=== PATIENT | female | born 2000 | race Caucasian/White ===

== ENCOUNTER 2019-03-23 01:52 | Outpatient (CLI) | payer BC, SELFPAY ==
[2019-03-23 11:56] LABS: BUN 12 mg/dL (7-18); CREATININE 0.71 mg/dL (0.55-1.02); Chloride 105 mmol/L (98-107); FREE T4 0.96 ng/dL (0.76-1.46); Glucose 88 mg/dL (70-100); Potassium 4.2 mmol/L (3.5-5.1); Sodium 142 mmol/L (136-145); TSH 3.81 uIU/mL (0.36-3.74)
[2019-03-23 12:21] LABS: Calculated LDL 77 mg/dL; Cholesterol 161 mg/dL (50-200); HDL Cholesterol 44 mg/dL (40-60); Triglyceride 200 mg/dL (30-150)
== END 2019-03-23 02:12 ==
PROVIDERS: PCP Nurse Practitioner Family; Visit Provider Nurse Practitioner Family
DX: E66.9 Obesity, unspecified (principal); Z00.00 Encounter for general adult medical examination without abnormal findings; Z13.220 Encounter for screening for lipoid disorders; Z13.228 Encounter for screening for other metabolic disorders
CPT/HCPCS: 36415; 80048; 80061; 83721; 84439; 84443

== ENCOUNTER 2019-06-14 07:22 | Emergency (ER) | payer BC, SELFPAY ==
[2019-06-14 07:27] VITALS: BP 156/96; PULSE 85; RESP 14; TEMP 36.8; O2SAT 98
--- NOTE | 2019-06-14 07:36 | DI.CT_ITS ---
EXAM: CT ABDOMEN PELVIS W CLINICAL HISTORY: RLQ pain, r/o appendicitis TECHNIQUE: The exam was performed according to the usual protocol utilizing 70 cc's of Omnipaque 350 . COMPARISON: No exams were available for comparison FINDINGS: The visualized lung bases are clear. The dome of the liver was not included. There is diffuse decreased attenuation of the liver suggesti ng hepatic steatosis. No suspicious hepatic mass is seen. The gallbladder is negative. No biliary ductal dilatation is present. The pancreas, spleen and adrenal glands are unremarkable. The kidneys, ureters and bladder are unremarkable. The reproductive organs are unremarkable as visualized. The abdominal aorta is of normal caliber. No significant abdominal or pelvic adenopathy, ascites or pneumoperitoneum is present. Visualized appendix is unremarkable. There is a normal air-filled appendix present. There are a few loops of small bowel which show mild bowel wall thickening. This may represent a mil d enteritis. The remainder of the bowel is unremarkable. No acute osseous abnormality is identified. IMPRESSION: 1. No evidence of acute appendicitis. 2. Mild bowel wall thickening in a few loops of small bowel. This may represent a mild enteritis.
[2019-06-14] MEDS: Normal Saline 1,000 ML 1000 ML IV (07:47)
[2019-06-14 07:51] LABS: Bilirubin Negative (Negative); Blood Negative (Negative); Clarity Cloudy (Clear); Glucose Negative (Negative); Ketones Negative (Negative); Leukocyte Esterase Moderate (Negative); Nitrite Negative (Negative); Urobilinogen 0.2 EU/dL (Up TO 0.2); pH 5.5 (5-8)
[2019-06-14] MEDS: Ondansetron 4 MG/2 ML VIAL IVP (07:55)
[2019-06-14] MEDS: Omnipaque 350 MG/ML 100 ML BTL IJ (07:55)
[2019-06-14 07:58] LABS: Abs Immature Grans 0.01 k/cumm (0.0-0.09); Absolute Basophil Count 0.04 k/cumm (0.0-0.2); Absolute Eosinophil Count 0.13 k/cumm (0.0-0.7); Absolute Lymphocyte Count 2.95 k/cumm (1.2-3.4); Absolute Monocyte Count 0.56 k/cumm (0.11-0.7); Absolute Neutrophil Count 5.11 k/cumm (1.2-6.7); Basophils % 0.5; Eosinophils % 1.5; HCT 41.1 % (36.0-46.0); HGB 14.2 g/dL (12.0-15.5); Immature Grans % 0.1; Lymphocytes % 33.5; Mean Corp. HGB Concentration 34.5 g/dL (32.0-36.0); Mean Corpuscular Hemoglobin 29.3 pg (27.0-33.0); Mean Corpuscular Volume 84.7 fL (80-95); Mean Platelet Volume 9.2 fL (8.0-11.0); Monocytes % 6.4; Platelet Count 333 x1000/uL (130-400); RBC 4.85 m/cumm (4.00-5.20); RBC Distribution Width 13.1 % (11.7-14.6)
--- NOTE | 2019-06-14 08:08 | ED.GENADUL_ITS ---
Discharge Plan Disposition Patient Disposition: HOME Condition: Stable Discharge Details Chief Complaint: Abd Prob Clinical Impression: Right lower quadrant abdominal pain, Cystitis Primary Care Provider: Tomeka Morton ED Provider: Poncho Woodward Home Meds and New Rx's Prescriptions: New sulfamethoxazole-trimethoprim 800-160 mg tablet 1 tab PO BID Qty: 6 RF: 0 No Action norethindrone ac-eth estradiol [08/24 (21)] 1-20 mg-mcg tablet 1 tab PO DAILY Qty: 63 RF: 4 triamcinolone acetonide 0.1 % cream 1 applic Topical DAILY PRN (Reason: rash) Qty: 80 RF: 0 Discharge Instructions Instructions: Abdominal Pain (ED) Additional Instructions: 1. Drink plenty fluids. 2. Continue all medications as prescribed. 3. Ibuprofen 600 mg every 6 hours and/or acetaminophen 1000 mg every 4 hours 5 times a day as needed for pain. 4. Bactrim DS twice a day for 3 days. Return for worsening pain, fever, vomiting, weakness, or for any other concerns. Medical Decision Making <Cristiano Temple DO - Last Filed: 06/14/19 17:22> This is a pleasant 18-year-old female no significant past medical history does take oral contraceptives who presents for right lower quadrant abdominal pain that started this morning after a bowel movement. Bowel movement was nonbloody. No vomiting diarrhea urinary complaints or vaginal complaints. Exam demonstrates reproducible right lower quadrant tenderness and voluntary guarding. Differential includes appendicitis versus atypical ovarian etiology. Will start with CT scan as appendicitis appears more clinically consistent with her current symptoms and then reassess if further ultrasound is indicated. With the constant nature of her symptoms ovarian torsion appears clinically unlikely. Patient will be medicated, will evaluate with laboratory work-up, and reassess. Patient will be signed out to my colleague Dr. Jerry Heaton for final disposition after CT scan and work-up has returned. <Poncho Woodward MD - Last Filed: 06/14/19 09:36> Assumed care of this 18-year-old woman with lower abdominal pain from Dr. Temple. Evaluation prior to transfer her care included exam documenting right lower quadrant pain and tenderness, a UA suggestive of cystitis, and a CT scan ordered with results pending. CT scan diagnostic for a normal [place] appendix, normal ovaries, and slight bowel thickening suggestive of regional enteritis/colitis. Discussed findings with patient. Discharged home with plan for OTC analgesia, Bactrim for her previously documented cystitis, follow-up with PCP. Given usual customary return instructions prior to discharge. HPI <Cristiano Temple DO - Last Filed: 06/14/19 17:22> General Date/Time Provider Initiated Documentation: 06/14/19 07:26 . HPI Narrative: This is a 18-year-old female with no significant past medical history who is on oral contraceptives who presents today for evaluation of right lower quadrant abdominal pain. Pain began this morning after she had a bowel movement. Bowel movement was slightly loose. She denies any melena or hematochezia. She denies any nausea or vomiting. Pain is sharp and aching in nature, primarily in the right lower quadrant. No significant radiation. She denies any previous abdominal surgeries. She denies any vaginal discharge, dysuria, increased urinary frequency, fever or chills. She has no other complaints at this time. Related Data Home Medications Medication Instructions Recorded Confirmed norethindrone acetate 1 mg-ethinyl 1 tab PO DAILY #63 tab 02/11/19 06/14/19 estradiol 20 mcg tablet triamcinolone acetonide 0.1 % 1 applic TOPICAL DAILY PRN #80 gm 02/11/19 06/14/19 topical cream sulfamethoxazole-trimethoprim 1 tab PO BID #6 tab 06/14/19 Previous Rx's Medication Instructions Recorded norethindrone acetate 1 mg-ethinyl 1 tab PO DAILY #63 tab 02/11/19 estradiol 20 mcg tablet triamcinolone acetonide 0.1 % 1 applic TOPICAL DAILY PRN #80 gm 02/11/19 topical cream sulfamethoxazole-trimethoprim 1 tab PO BID #6 tab 06/14/19 Allergies Allergy/AdvReac Type Severity Reaction Status Date / Time No Known Allergies Allergy Unverified 06/14/19 07:32 General Stated Complaint: Abd Prob JESSICA: 3 Review of Systems <Cristiano Temple DO - Last Filed: 06/14/19 17:22> All systems reviewed & are unremarkable except as noted in HPI and below PFSH <Cristiano Temple DO - Last Filed: 06/14/19 17:22> Social History (Updated 11/24/18 @ 14:22 by Thierno Diaz) Smoking/Tobacco Use Status: Never Alcohol Intake: never Drug use: Never Substance use type: does not use Caregiver/Support person: No Household members: family Housing: house Communication Needs: None Do you need help understanding health information?: Rarely Pets and animals: Yes Pets and animals: cat(s) and dog(s) Sexually active: No Do you think of yourself as: straight/heterosexual Current gender identity: female What is your relationship status?: never How often do you talk on the phone with friends or family?: twice per week How often do you get together with friends or relatives?: twice per week How often do you attend congregational or sabianism services?: 4 or more times per year Do you belong to any clubs or organized social groups?: no Panel score (0-1 are the most socially isolated patients): 2 What type of physical activity do you participate in: decline to answer Duration: decline to answer Frequency: decline to answer Yani/Scientology: Buddhist Special yani needs: No Seatbelt use: always Helmet use: No Drive intox or ride w/intox security patrol driver: No Do you feel safe at home: Yes Do you feel safe in your relationship?: Yes Female Reproductive History Menstrual control method: pills History History 0 Para Hx # Term Pregnancies Multiple births Hx # Pregnancies Ectopic pregnancies AB induced Hx Number of Living Children AB spontaneous Exam <Cristiano Temple DO - Last Filed: 06/14/19 17:22> Narrative Exam Narrative: 1.Const: Well-nourished, Well-developed, appearing stated age, morbidly obese 2.Eyes: PERRL, no conjunctival injection, and symmetrical lids. 3.ENT: Atraumatic external nose and ears. Moist MM. Neck: Symmetric, trachea midline, No thyromegaly. 4.CVS: +S1/S2, No murmurs or gallops. Peripheral pulses 2+ and equal in all extremities. Brisk capillary refill in all extremities. 5.RESP: Unlabored respiratory effort. Clear to auscultation bilaterally. No wheezes rales or rhonchi 6.GI: Soft, bowel sounds present throughout, nondistended, no rebound but she does have voluntary guarding in the right lower quadrant. Mild to moderate tenderness on palpation of the right lower quadrant. Negative Reyes sign. Negative obturator psoas sign. Negative heel strike test. 7.MSK: Normocephalic/Atraumatic, Extremities w/o deformity or ttp No cyanosis or clubbing, Normal movement of all extremities 8.Skin: Warm, Dry. No rashes or lesions. 9.Neuro: coil winder strap II-XII grossly intact. Sensation grossly intact, no focal neurologic deficits. 10.Psych: (AAO) x3. Appropriate mood and affect Course <Cristiano Temple DO - Last Filed: 06/14/19 17:22> Vital Signs Vital signs: Vital Signs Temperature 36.8 C 06/14/19 07:27 Pulse 85 06/14/19 07:27 Respiratory Rate 14 06/14/19 07:27 Blood Pressure 156/96 H 06/14/19 07:27 Pulse Oximetry 98 06/14/19 07:27 Temperature 36.8 C 06/14/19 07:27 Temperature Source Temporal Artery Scan 06/14/19 07:27 Pulse 85 06/14/19 07:27 Respiratory Rate 14 06/14/19 07:27 Blood Pressure 156/96 H 06/14/19 07:27 Blood Pressure Position Sitting 06/14/19 07:27 Pulse Oximetry 98 06/14/19 07:27 Oxygen Delivery Method Room Air 06/14/19 07:27 Oxygen Flow Rate 0 06/14/19 07:27 Pain Level 8 06/14/19 07:27 Lab/Test Results Lab/Test Results: POC- Test(urine) Negative Sign Out <DO Fran Bryant Last Filed: 06/14/19 17:22> Sign Out Data: Sign Out Comment: Pending CT results. Right lower quadrant pain, waiting to rule out appe Last updated by Cristiano Temple DO at 06/14/19 08:22
[2019-06-14 08:16] LABS: Bacteria Moderate HPF (Negative); C & S Indicated? No/Sq. Contamination; Casts Negative LPF (Negative); Crystals Negative HPF (Negative); Epithelial Cells Many HPF (Negative); Mucus Negative (Negative); WBC >50 HPF (0-5)
[2019-06-14 08:28] LABS: ALT 18 U/L (14-59); AST 11 U/L (15-37); Albumin 3.4 g/dL (3.4-5.0); Alkaline Phosphatase 66 U/L (46-116); Anion Gap 10.6 mmol/L (3-11); BUN 12 mg/dL (7-18); Bilirubin, Total 0.3 mg/dL (0.2-1.0); CO2 26.4 mmol/L (21.0-32.0); CREATININE 0.76 mg/dL (0.55-1.02); Calcium 9.1 mg/dL (8.5-10.1); Chloride 103 mmol/L (98-107); Glucose 100 mg/dL (70-100); Lipase 92 U/L (73-393); Sodium 140 mmol/L (136-145); Total Protein 7.3 g/dL (6.4-8.2)
--- NOTE | 2019-06-14 08:41 | DI.VRAD_ITS ---
PROCEDURE INFORMATION: Exam: CT Abdomen And Pelvis With Contrast Exam date and time: 06/14/2019 7:37 AM Clinical history: 18 years old, female; Other: Rlq pain TECHNIQUE: Imaging protocol: Computed tomography of the abdomen and pelvis with intravenous contrast. COMPARISON: No relevant prior studies available. FINDINGS: Liver: Normal. No mass. Gallbladder and bile ducts: Normal. No calcified stones. No ductal dilation. Pancreas: Normal. No ductal dilation. Spleen: Normal. No splenomegaly. Adrenals: Normal. No mass. Kidneys and ureters: No renal calculus or ureteral calculus Stomach and bowel: A few loops of dilated jejunum. Intermittent bowel wall thickening in the jejunum. Findings may represent enteritis, ileus, obstruction. Appendix: The visualized appendix is normal. The appendix contains air. The tip is not seen well as it is adjacent to the right ovary Intraperitoneal space: Unremarkable. No free air. No significant fluid collection. Vasculature: Unremarkable. No abdominal aortic aneurysm. Lymph nodes: Small retroperitoneal nodes Bladder: Unremarkable as visualized. Reproductive: Unremarkable as visualized. Bones/joints: Unremarkable. No acute fracture. Soft tissues: Unremarkable. IMPRESSION: A few loops of dilated jejunum. Intermittent bowel wall thickening in the jejunum. Findings may represent enteritis, ileus, obstruction. Visualized appendix is normal Dictated and Authenticated by: Hakan Tello MD. Ordering:FREDDY Quinonez MD
[2019-06-14] MEDS: cefTRIAXone 1 GM/50 ML BAG IVPB (09:06)
[2019-06-14 09:45] VITALS: BP 102/49; PULSE 63; RESP 16; TEMP 37; O2SAT 97
== END 2019-06-14 09:43 | disposition home or self-care (01) ==
PROVIDERS: Student in an Organized Health Care Education/Training Program; Emergency Provider Emergency Medicine; PCP Nurse Practitioner Family
DX: R10.31 Right lower quadrant pain (principal); N30.00 Acute cystitis without hematuria
CPT/HCPCS: 36415; 80053; 83690; 96361; 96365; 96375; 99285; 74177; 81003; 81015; 85025; 99284; J0696; J2405; J3490

== ENCOUNTER 2020-04-07 10:03 | Outpatient (REF) | payer BC, SELFPAY ==
--- NOTE | 2020-04-07 14:50 | PAPFT_PTH ---
PATIENT: VIRGIE MENEZES LOC: [facility] U#:[id number] AGE/SX: 19/F ROOM: RE04/07/[address]: BLACK Torres : 2000 BED: DIS: 04/07/2020 SPEC #: [id number] RECD: 04/08/20 10:09 STATUS: ANNA RESarah #: [id number] KRYSTYNA: 04/07/20 14:[address]: Tomeka Morton DEPT: [facility] Cytology RECD BY: Nataliya Garcia Tissues: 1 - CX/ENDOCX FOR PAP SMEARS Procedures: PAP THIN PREP/[facility] Screening Comments: [id number]
== END 2020-04-07 10:23 ==
LOC: LBN 10:03
PROVIDERS: PCP Nurse Practitioner Family; Visit Provider Nurse Practitioner Family
DX: Z12.4 Encounter for screening for malignant neoplasm of cervix (principal)
CPT/HCPCS: 88142

== ENCOUNTER 2020-04-08 04:28 | Outpatient (CLI) | payer BC, SELFPAY ==
--- NOTE | 2020-04-08 07:00 | DI.US_ITS ---
EXAM: US SOFT TISS BUTTOCK/PERINEUM CLINICAL HISTORY: Firm swelling to right buttock, R22.2, SWELLING OF PERINEAL TISSUE. TECHNIQUE: Ultrasound was performed using standard protocol. COMPARISON: No exams were available for comparison FINDINGS: Sonographic assessment utilizing grayscale and color Doppler imaging was performed and targeted to th e area of clinical concern. On the right buttock there is noted a 4.5 x 3.8 x 4.6 cm mass with echogenicity consistent with the s urrounding fat. This is most consistent with a lipoma. No suspicious solid or cystic masses are see n. IMPRESSION: Findings consistent with a 4.5 x 3.8 x 4.6 cm lipoma in the right buttocks. DATA REPOSITORY:
== END 2020-04-08 04:48 ==
PROVIDERS: PCP Nurse Practitioner Family; Visit Provider Nurse Practitioner Family
DX: R22.2 Localized swelling, mass and lump, trunk (principal)
CPT/HCPCS: 76857